=== PATIENT | female | born 1990 | race Two or more races ===

== ENCOUNTER → 2023-08-08 11:35 | Outpatient (CLI) | payer OTHER | END | disposition home or self-care (01) | LOC: PRENATAL 11:35 | PROVIDERS: ATTEND Obstetrics & Gynecology Maternal & Fetal Medicine | DX: O36.80X0 Pregnancy with inconclusive fetal viability, not applicable or unspecified (principal); Z36.82 Encounter for antenatal screening for nuchal translucency; Z36.9 Encounter for antenatal screening, unspecified; Z3A.12 12 weeks gestation of pregnancy ==

== ENCOUNTER 2023-10-04 11:11 | Outpatient (CLI) | payer OTHER | END 2023-10-04 11:13 | disposition home or self-care (01) | LOC: PRENATAL 11:11 | PROVIDERS: ATTEND Obstetrics & Gynecology Maternal & Fetal Medicine | DX: O35.9XX0 Maternal care for (suspected) fetal abnormality and damage, unspecified, not applicable or unspecified (principal); O44.00 Complete placenta previa NOS or without hemorrhage, unspecified trimester; Z3A.20 20 weeks gestation of pregnancy ==

== ENCOUNTER 2024-02-08 14:30 | Inpatient (IN) | payer OTHER ==
[~2024-02-08] VITALS: Ht 172.7 cm; Wt 3.2 kg
[2024-02-19] MEDS ORDERED: PRENATABS RX T1 EACH PO (09:23)
[2024-02-19] MEDS ORDERED: MISOPROSTOL 25 MCG TABLET VAG ONE (09:30)
[2024-02-19] MEDS ORDERED: RINGERS SOLUTION,LACTATED 1,000 ML IV SCH (09:45)
[2024-02-19 09:56] LABS: HEMOGLOBIN 11.7 g/dL (12.0-15.00); MEAN CELL VOLUME 91.8 fL (80.00-100.00); MEAN CORPUSCULAR HEMOGLOBIN 31.5 pg (27.00-32.0); MEAN CORPUSCULAR HGB CONC 34.3 g/dl (32.0-36.0); PLATELET COUNT 304 K/uL (150-450); RED BLOOD COUNT 3.71 M/uL (4.00-6.00); RED CELL DISTRIBUTION WIDTH 13.9 % (11.5-14.5)
[2024-02-19 09:59] LABS: URINE APPEARANCE Clear; URINE BILIRRUBIN Negative (NEGATIVE); URINE BLOOD Negative; URINE COLOR Yellow; URINE GLUCOSE Negative (NEGATIVE); URINE LEUKOCYTE Trace; URINE NITRATE Negative; URINE PROTEIN Negative (NEGATIVE); URINE UROBILINOGEN 0.2 E.U./dl
[2024-02-19 10:03] LABS: URINE BACTERIA 6163.6 uL (0.0-1933); URINE EPITHELIAL CELLS 14.6 uL (0.0-38.8); URINE RBC 6.1 uL (0.0-20.8); URINE WBC 118.4 uL (0.0-23.2)
[2024-02-19 10:17] LABS: INR < 0.93; PARTIAL THROMBOPLASTIN TIME 27.4 SECONDS (22.0-34.0); PROTHROMBIN TIME 9.3 SECONDS (9.0-11.5)
[2024-02-19 10:29] LABS: ALBUMIN 2.8 gm/dL (3.4-5.0); BILIRUBIN TOTAL 0.83 mg/dL (0.3-1.2); CALCIUM 9.3 mg/dL (8.5-10.1); CREATININE SERUM 0.52 mg/dL (0.55-1.02); GFR 136.65; GLOBULINA 3.8 G/DL (2.4-3.5); POTASSIUM 4.11 mEq/L (3.5-5.1); TOTAL PROTEIN 6.6 gm/dL (6.4-8.2)
[2024-02-19] MEDS ORDERED: MISOPROSTOL 25 MCG/4 ML GEL.W.APPL VAG NR (15:15)
[2024-02-19] MEDS ORDERED: CLINDAMYCIN PHOSPHATE 150 MG/ML (900mg) IV NR (17:45)
[2024-02-19] MEDS ORDERED: MEPERIDINE HCL/PF 25 MG/ML VIAL IV PRN (19:00)
[2024-02-19] MEDS ORDERED: OXYTOCIN 1,000 ML IV SCH (19:00)
[2024-02-19] MEDS ORDERED: ERYTHROMYCIN BASE 1 GM TUBE OP NR (19:00)
[2024-02-19] MEDS ORDERED: PROMETHAZINE HCL 25 MG/ML AMPUL IV PRN (19:00)
[2024-02-19] MEDS ORDERED: CHLORHEXIDINE GLUCONATE 120 ML BOTTLE TOP NR (19:00)
[2024-02-19] MEDS ORDERED: ONDANSETRON HCL 2 MG/ML VIAL IV PRN (19:15)
[2024-02-19 19:31] LABS: ABG PH 7.275 (7.35-7.45); ABG pCO2 44.9 mmHg (35-45); BASE EXCESS -6.4 mmol/l; BICARBONATE 20.4 mmol/l (23-25); SaO2 21.7 %; Tco2 21.8 mmol/l; o2 21 %
[2024-02-19] MEDS ORDERED: FAMOTIDINE/PF 20 MG/2 ML VIAL IV SCH (21:00)
[2024-02-19] MEDS ORDERED: KETOROLAC TROMETHAMINE 30 MG VIAL IV SCH (21:00)
[2024-02-19] MEDS ORDERED: ERYTHROMYCIN BASE 1 GM TUBE OP ONE (23:45)
[2024-02-19] MEDS ORDERED: OXYTOCIN 10 UNITS/ML VIAL IV ONE (23:45)
[2024-02-20 02:22] LABS: HEMATOCRIT 28.3 % (36.0-45.00); HEMOGLOBIN 9.7 g/dL (12.0-15.00); MEAN CELL VOLUME 92.1 fL (80.00-100.00); MEAN CORPUSCULAR HEMOGLOBIN 31.7 pg (27.00-32.0); MEAN CORPUSCULAR HGB CONC 34.4 g/dl (32.0-36.0); PLATELET COUNT 234 K/uL (150-450); RED BLOOD COUNT 3.07 M/uL (4.00-6.00); RED CELL DISTRIBUTION WIDTH 13.9 % (11.5-14.5)
[2024-02-20] MEDS ORDERED: OxyCODONE HCL/APAP UD (PERCOCET) PO PRN (08:00)
[2024-02-20] MEDS ORDERED: SIMETHICONE 125 MG CAPSULE PO SCH (09:00)
[2024-02-20] MEDS ORDERED: IBUprofen 800 MG TABLET PO PRN (09:00)
[2024-02-20] MEDS ORDERED: DOCUSATE SODIUM 100MG CAP PO SCH (09:00)
[2024-02-20] MEDS ORDERED: FERROUS SULFATE 325 MG TABLET.EC PO SCH (12:00)
== END 2024-02-21 14:14 | disposition home or self-care (01) | DRG 788 ==
LOC: LDR 02-16 14:30 → OB/GYN 02-19 07:24 → LDR 02-19 07:44 → OB/GYN 02-19 21:27
PROVIDERS: ADMIT General Practice; ATTEND General Practice
PROC: 3E033VJ Introduction of Other Hormone into Peripheral Vein, Percutaneous Approach (ICD-10-PCS; 2024-02-19)
PROC: 3E0P7VZ Introduction of Hormone into Female Reproductive, Via Natural or Artificial Opening (ICD-10-PCS; 2024-02-19)
PROC: 4A1HXCZ Monitoring of Products of Conception, Cardiac Rate, External Approach (ICD-10-PCS; 2024-02-19)
PROC: 10D00Z1 Extraction of Products of Conception, Low, Open Approach (ICD-10-PCS; principal; 2024-02-19 19:30)
DX: O36.8330 Maternal care for abnormalities of the fetal heart rate or rhythm, third trimester, not applicable or unspecified (principal); Z3A.40 40 weeks gestation of pregnancy; Z37.0 Single live birth; Z20.822 Contact with and (suspected) exposure to COVID-19

== ENCOUNTER 2024-02-14 10:26 | Outpatient (CLI) | payer OTHER | END 2024-02-14 11:00 | disposition home or self-care (01) | LOC: NST 10:26 | PROVIDERS: ATTEND General Practice | DX: Z34.83 Encounter for supervision of other normal pregnancy, third trimester (principal) ==